=== PATIENT | female | born 1960 | race American Indian/Alaskan Native ===

== ENCOUNTER 2019-07-03 19:15 | Emergency (ER) | payer BC ==
--- NOTE | 2019-07-03 19:51 | Event Note ---
ED Screening Note Date of service: 07/03/19 Time: 19:48 ED Screening Note: This is a 59 y.o. F. that presents to the ER with left knee and ankle pain 2 months. Reports pain is worse with bending. Denies injury, redness, or warmth. Nonsmoker PMH HTN PCP [facility] This initial assessment/diagnostic orders/clinical plan/treatment(s) is/are subject to change based on patients health status, clinical progression and re- assessment by fellow clinical providers in the ED. Further treatment and workup at subsequent clinical providers discretion. Patient/guardian urged not to elope from the ED as their condition may be serious if not clinically assessed and managed. Initial orders include: XR of left knee
--- NOTE | 2019-07-03 20:51 | XRay Report ---
LEFT KNEE 2 VIEWS INDICATION / CLINICAL INFORMATION: MAIN: knee pain and swelling medial. COMPARISON: None available. FINDINGS: Mild tricompartmental left knee degenerative arthrosis is present with small knee effusion. There is no fracture or dislocation. Signer Name: Moses Hammond MD Signed: 07/03/2019 8:46 PM Workstation Name: [id number]
--- NOTE | 2019-07-03 21:15 | Emergency Department Report ---
ED Extremity Problem HPI - General Chief complaint: Extremity Injury, Lower Stated complaint: L KNEE PAIN Time Seen by Provider: 07/03/19 19:47 Source: patient Mode of arrival: Ambulatory Limitations: No Limitations - History of Present Illness Initial comments: 59-year-old -[place] female presents to the emergency room for left knee pain 2 months. Patient reports the pain comes and goes with some swelling at times. Patient reports that she stands up all the time while at work. Patient has taken nothing for pain she is ambulating without difficulty. Patient reports a past medical history of hypertension. She denies any trauma. MD Complaint: extremity pain Onset/Timin -: month(s) Location: left, knee -: Yes arthralgia Radiation: none Severity scale (0 -10): 2 Quality: aching Consistency: intermittent Worsens with: weight bearing, walking Associated Symptoms: denies other symptoms - Related Data Previous Rx's Medication Instructions Recorded Last Taken Type Naproxen [Naprosyn] 500 mg PO BID PRN #20 tablet 07/03/19 Unknown Rx Allergies Allergy/AdvReac Type Severity Reaction Status Date / Time iron Allergy Unknown Verified 07/03/19 19:24 ED Review of Systems ROS: Stated complaint: L KNEE PAIN Other details as noted in HPI Comment: All other systems reviewed and negative ED Past Medical Hx - Past Medical History Previous Medical History?: Yes Hx Hypertension: Yes - Surgical History Past Surgical History?: No - Social History Smoking Status: Never Smoker Substance Use Type: None - Medications Home Medications: Home Medications Medication Instructions Recorded Confirmed Last Taken Type Naproxen [Naprosyn] 500 mg PO BID PRN #20 tablet 07/03/19 Unknown Rx ED Physical Exam - General Limitations: No Limitations General appearance: alert, in no apparent distress - Head Head exam: Present: atraumatic, normocephalic - Eye Eye exam: Present: normal appearance - ENT ENT exam: Present: mucous membranes moist - Expanded Lower Extremity Exam Left Hip exam: Present: full ROM Upper Leg exam: Present: normal inspection, full ROM Knee exam: Present: full ROM, swelling (mild). Absent: tenderness, dislocation, erythema Lower Leg exam: Present: normal inspection, full ROM Ankle exam: Present: normal inspection, full ROM Foot/Toe exam: Present: normal inspection, full ROM ED Course Vital Signs 07/03/19 19:24 Temperature 98.4 F Pulse Rate 67 Respiratory 16 Rate Blood Pressure 136/74 O2 Sat by Pulse 98 Oximetry ED Medical Decision Making - Radiology Data Radiology results: report reviewed Patient: REGINO VICENTE MR#: [id number] : 1960 Acct:[id number] Age/Sex: 59 / F ADM Date: 07/03/19 Loc: ED Attending Dr: Ordering Physician: CHARAN DHILLON Date of Service: 07/03/19 Procedure(s): XR knee 1-2V LT Accession Number(s): [id number] cc: CHARAN DHILLON Fluoro Time In Minutes: LEFT KNEE 2 VIEWS INDICATION / CLINICAL INFORMATION: MAIN: knee pain and swelling medial. COMPARISON: None available. FINDINGS: Mild tricompartmental left knee degenerative arthrosis is present with small knee effusion. There is no fracture or dislocation. Signer Name: Moses Hammond MD Signed: 07/03/2019 8:46 PM Workstation Name: [id number] Transcribed By: TL Dictated By: Moses Hammond MD Electronically Authenticated By: Moses Hammond MD Signed Date/Time: 07/03/192045 DD/ 45 TD/TT: - Medical Decision Making 59-year-old -[place] female presents to the emergency room for left knee pain 2 months. Patient reports the pain comes and goes with some swelling at times. Patient reports that she stands up all the time while at work. Patient has taken nothing for pain she is ambulating without difficulty. Patient reports a past medical history of hypertension. She denies any trauma. X-ray of left knee shows tricompartment degenerative joint disease with a mild knee infusion. Struck the patient she can take Aleve or ibuprofen as needed for pain. She is to follow-up with the orthopedic provider for symptoms persist or gets worse. Critical care attestation.: If time is entered above; I have spent that time in minutes in the direct care of this critically ill patient, excluding procedure time. ED Disposition Clinical Impression: Degenerative joint disease of knee, left Qualifiers: Osteoarthritis type: primary Qualified Code(s): M17.12 - Unilateral primary ost eoarthritis, left knee Disposition: - TO HOME OR SELFCARE Is pt being admited?: No Does the pt Need Aspirin: No Condition: Stable Instructions: Osteoarthritis (ED) Additional Instructions: X-rays of the knee shows degenerative joint disease which is osteoarthritis. I recommend taken naproxen twice a day as needed for pain. I also recommended to follow up with orthopedic provider for further evaluation. Prescriptions: Naproxen [Naprosyn] 500 mg PO BID PRN #20 tablet PRN Reason: Pain , Severe (7-10) Referrals: RICKEY OMER MD [Staff Physician] - 3-5 Days
[2019-07-03 22:01] VITALS: BP 132/80
== END 2019-07-03 21:30 | disposition home or self-care (01) ==
LOC: ED 19:15
DX: M17.12 Unilateral primary osteoarthritis, left knee (principal); I10 Essential (primary) hypertension; Z79.899 Other long term (current) drug therapy

== ENCOUNTER 2022-03-28 21:07 | Emergency (ER) | payer BC ==
--- NOTE | 2022-03-29 02:10 | XRay Report ---
CHEST 2 VIEWS INDICATION / CLINICAL INFORMATION: LEFT SIDED CHEST PAIN. COMPARISON: None available. FINDINGS: SUPPORT DEVICES: None. HEART / MEDIASTINUM: No significant abnormality. LUNGS / PLEURA: No significant pulmonary abnormality. No significant pleural effusion. No pneumothora x. ADDITIONAL FINDINGS: No significant additional findings. IMPRESSION: 1. No acute abnormality of the chest. Signer Name: Lit Oconnor MD Signed: 03/29/2022 2:06 AM Workstation Name: [id number]
[2022-03-29 02:33] LABS: Hematocrit 39.5 % (30.3-42.9); Hemoglobin 13.5 gm/dl (10.1-14.3); Mean Corpuscular HGB Conc 34 % (30-34); Mean Corpuscular Volume 92 fl (79-97); Platelet Count 300 K/mm3 (140-440); Red Blood Count 4.31 M/mm3 (3.65-5.03)
[2022-03-29 02:46] LABS: Alanine Aminotransferase 20 units/L (7-56); Albumin 4.7 g/dL (3.9-5); Blood Urea Nitrogen 9 mg/dL (7-17); Calcium 9.6 mg/dL (8.4-10.2); Hemolysis Index 5
[2022-03-29 03:06] LABS: BUN/Creatinine Ratio 13; Bilirubin,Direct < 0.2 mg/dL (0-0.2)
--- NOTE | 2022-03-29 05:27 | Emergency Department Report ---
ED General Adult HPI - General Chief complaint: Extremity Injury, Lower Stated complaint: NOT FEELING WELL Time Seen by Provider: 03/29/22 01:28 Source: patient Mode of arrival: Ambulatory Limitations: No Limitations - History of Present Illness Initial comments: 62-year-old female with past medical history of hypertension and prediabetes presents emergency department complaining of a few day history increasing left- sided numbness and tingling to the chest arm and shoulder that did radiates up towards her head causing a strange burning and shooting pain. She also has significant numbness tingling and burning to the bottom of her foot and is unsur e of what that may be. She denies any headache, blurry vision, fever, chills, sweats. No palpitations or shortness of breath does get occasional aches to her chest. She is unsure of increased urinary urgency or or frequency but denies any back pain or flank pain. Radiation: non-radiation Quality: burning, aching Improves with: none Worsens with: none Associated Symptoms: denies: diaphoresis, fever/chills, headaches, rash, seizure - Related Data Previous Rx's Medication Instructions Recorded Last Taken Type Naproxen [Naprosyn] 500 mg PO BID PRN #20 tablet 07/03/19 Unknown Rx Allergies Allergy/AdvReac Type Severity Reaction Status Date / Time iron Allergy Unknown Verified 03/28/22 21:50 ED Review of Systems ROS: Stated complaint: NOT FEELING WELL Other details as noted in HPI Comment: All other systems reviewed and negative ED Past Medical Hx - Past Medical History Previous Medical History?: Yes Hx Hypertension: Yes - Surgical History Past Surgical History?: No - Social History Smoking Status: Never Smoker Substance Use Type: None - Medications Home Medications: Home Medications Medication Instructions Recorded Confirmed Last Taken Type Naproxen [Naprosyn] 500 mg PO BID PRN #20 tablet 07/03/19 Unknown Rx ED Physical Exam - General Limitations: No Limitations General appearance: alert, in no apparent distress - Head Head exam: Present: atraumatic, normocephalic - Eye Eye exam: Present: normal appearance, PERRL, EOMI Pupils: Present: normal accommodation - ENT ENT exam: Present: mucous membranes moist - Neck Neck exam: Present: normal inspection - Respiratory Respiratory exam: Present: normal lung sounds bilaterally. Absent: respiratory distress - Cardiovascular Cardiovascular Exam: Present: regular rate, normal rhythm. Absent: systolic murmur, diastolic murmur, rubs, gallop - GI/Abdominal GI/Abdominal exam: Present: soft, normal bowel sounds - Extremities Exam Extremities exam: Present: normal inspection - Back Exam Back exam: Present: normal inspection - Neurological Exam Neurological exam: Present: alert, oriented X3 - Psychiatric Psychiatric exam: Present: normal affect, normal mood - Skin Skin exam: Present: warm, dry, intact, normal color. Absent: rash ED Course Vital Signs 03/28/22 21:47 Temperature 98.5 F Pulse Rate 62 Respiratory 18 Rate Blood Pressure 171/83 [Left] O2 Sat by Pulse 96 Oximetry ED Medical Decision Making - Lab Data Result diagrams: 03/29/22 02:07 03/29/22 02:07 Lab Results 03/29/22 03/29/22 Range/Units 02:07 02:07 WBC 5.5 (4.5-11.0) K/mm3 RBC 4.31 (3.65-5.03) M/mm3 Hgb 13.5 (10.1-14.3) gm/dl Hct 39.5 (30.3-42.9) % MCV 92 (79-97) fl MCH 31 (28-32) pg MCHC 34 (30-34) % RDW 14.0 (13.2-15.2) % Plt Count 300 (140-440) K/mm3 Sodium 139 (137-145) mmol/L Potassium 4.2 (3.6-5.0) mmol/L Chloride 103.1 (98-107) mmol/L Carbon Dioxide 24 (22-30) mmol/L Anion Gap 16 mmol/L BUN 9 (7-17) mg/dL Creatinine 0.7 (0.6-1.2) mg/dL Estimated GFR > 60 ml/min BUN/Creatinine Ratio 13 % Glucose 106 H (65-100) mg/dL Calcium 9.6 (8.4-10.2) mg/dL Total Bilirubin 0.30 (0.1-1.2) mg/dL Direct Bilirubin < 0.2 (0-0.2) mg/dL Indirect Bilirubin 0.1 mg/dL AST 27 (5-40) units/L ALT 20 (7-56) units/L Alkaline Phosphatase 73 (35-129) units/L Troponin T < 0.010 (0.00-0.029) ng/mL Total Protein 7.8 (6.3-8.2) g/dL Albumin 4.7 (3.9-5) g/dL Albumin/Globulin Ratio 1.5 % - Radiology Data Radiology results: report reviewed [facility] [address] [place] [address] XRay Report Signed Patient: KATE VICENTE MR#: [id number] : 1960 Acct:[id number] Age/Sex: 62 / F ADM Date: 03/28/22 Loc: ED Attending Dr: Ordering Physician: ROBERTO FLOREZ Date of Service: 03/29/22 Procedure(s): XR chest routine 2V Accession Number(s): [id number] cc: ROBERTO FLOREZ Fluoro Time In Minutes: CHEST 2 VIEWS INDICATION / CLINICAL INFORMATION: LEFT SIDED CHEST PAIN. COMPARISON: None available. FINDINGS: SUPPORT DEVICES: None. HEART / MEDIASTINUM: No significant abnormality. LUNGS / PLEURA: No significant pulmonary abnormality. No significant pleural effusion. No pneumothorax. ADDITIONAL FINDINGS: No significant additional findings. IMPRESSION: 1. No acute abnormality of the chest. Signer Name: Lit Oconnor MD Signed: 03/29/2022 2:06 AM Workstation Name: [id number] Transcribed By: MN Dictated By: Lit Oconnor MD Electronically Authenticated By: Lit Oconnor MD Signed Date/Time: 03/29/22205 DD/ 4 TD/TT: - Medical Decision Making This patient presents with chest pain/body pain that is very unlikely angina or acute coronary syndrome. The emergency department evaluation has not identified any cause for suspicion that this chest pain has a cardiac etiology. Based on their history, EKG (which showed no evidence of ischemia or infarction) and imaging, in addition to the patient's physical exam, I see no evidence at this time for a malignant etiology for the patient's chest pain. There is no acute evidence for pulmonary embolus, acute myocardial infarction, pneumothorax, Boerhaeve syndrome, cardiac tamponade, thoracic artery dissection, or any other emergent cardiac, pulmonary or aortic pathology. Given the low pre-test probability for cardiac etiology of chest pain and the absence of any sign of ischemia or infarction, discharge for outpatient follow-up and further evaluation is reasonable. I have explained to the patient that even though a cardiac problem is very unlikely, follow-up and further testing is required to reduce further the already small uncertainty that exists. Other life-threatening diagnoses have been considered. The patient understands the need to return immediately if their symptoms worsen or they develop any new symptoms, and not to engage in any significant exertional activity until follow-up is obtained. Critical care attestation.: If time is entered above; I have spent that time in minutes in the direct care of this critically ill patient, excluding procedure time. ED Disposition Clinical Impression: Hypertension, Chest pain, Neuropathy Disposition: HOME / SELF CARE / HOMELESS Is pt being admited?: No Does the pt Need Aspirin: No Condition: Stable Instructions: Hypertension (ED), Nonspecific Chest Pain, Adult, Hypertension, Adult, [id number], Neuropathic Pain, Peripheral Neuropathy Additional Instructions: You were evaluated emergency department today for chest pain. Your evaluation has shown no medicals conditions requiring emergent intervention at this time, however recommend that you follow-up with your primary care physician or your subsorter soon as possible for further testing as an outpatient. Please schedule an appointment for follow-up with your primary care physician as soon as possible. Return to emergency department if you expands worsening uncontrolled chest pain, shortness of breath, lightheadedness, feeling faint, nausea, vomiting or any other concerning symptoms. Referrals: PRIMARY CARE, [Primary Care Provider] - 3-5 Days
[2022-03-29 06:45] VITALS: BP 173/86
--- NOTE | 2022-03-30 17:05 | Electrocardiograph Report ---
[facility] Test Date: 2022-03-29 Test Time: 01:51:15 Pat Name: KATE VICENTE Department: Room: Gender: F [employer] Supervisor: Micheline CHANG : 1960 Requested By: ROXANA GARCIA Order Number: [id number] Reading MD: Zay Downs Measurements Intervals [place] Rate: 53 P: 54 GA: 170 QRS: 19 QRSD: 87 T: 3 QT: 446 QTc: 419 Interpretive Statements Sinus bradycardia Left ventricle hypertrophy No previous ECG available for comparison Electronically Signed On 03-30-2022 17:05:06 EDT by Zay Downs
== END 2022-03-29 06:46 | disposition home or self-care (01) ==
LOC: ED 21:07
DX: I10 Essential (primary) hypertension (principal); R07.9 Chest pain, unspecified; G62.9 Polyneuropathy, unspecified
CPT/HCPCS: 36415; 71046; 80048; 80076; 84484; 85027; 93005; 99283